=== PATIENT | female | born 1955 | race Two or more races ===

== ENCOUNTER 2016-03-11 09:43 | Inpatient (IN) | payer MEDICAID ==
[~2016-03-11] VITALS: Ht 30.5 cm; Wt 59.0 kg
[2016-03-11] MEDS ORDERED: ASPirin 81 mg TAB PO ONE (10:15)
[2016-03-11] MEDS ORDERED: MORPHINE SULF INJ 2 MG/ML SYRINGE 1ML IV ONE (10:15)
[2016-03-11] MEDS ORDERED: ONDANSETRON HCL 4 MG/2 ML VIAL IV ONE (10:15)
[2016-03-11] MEDS ORDERED: FUROSEMIDE 40 MG/4 ML VIAL IV ONE (10:15)
[2016-03-11 10:54] LABS: Basophils # (auto) 0 uL; Basophils % (auto) 0.6 % (0.0-2.0); Eosinophils # (auto) 0 uL; Eosinophils % (auto) 0.2 % (0.0-7.0); Hemoglobin 13.6 g/dL (12.2-16.2); Lymphocytes # (auto) 1.3 uL; Lymphocytes % (auto) 23.5 % (10.0-50.0); Mean Corpuscular Hemoglobin 28.9 pg (28.0-32.0); Mean Corpuscular Hgb Conc. 33.3 g/dL (32.0-36.0); Mean Platelet Volume 10.1 fL (7.4-10.4); Monocytes # (auto) 0.7 uL; Monocytes % (auto) 12.7 % (0.0-12.0); Neutrophils # (auto) 3.4 uL; Platelet Count (auto) 218 10^3/uL (140-450); Red Cell Distribution Width 13.2 % (11.6-16.0); White Blood Cell 5.4 10^3/uL (4.4-10.8)
[2016-03-11 11:20] LABS: Albumin 3.5 g/dL (3.4-5.0); BUN/Creatinine Ratio 18.4; Bilirubin, Total 0.7 mg/dL (0.2-1.0); Calcium 8.3 mg/dL (8.5-10.1); Magnesium 2.3 mg/dL (1.6-2.6); Total Protein 6.9 g/dL (6.4-8.2)
[2016-03-11 11:21] LABS: B-Type Natriuretic Peptide 18.09 pg/mL (0-100)
[2016-03-11 11:25] LABS: Potassium 2.9 mmol/L (3.5-5.1)
[2016-03-11] MEDS ORDERED: POTASSIUM CHL 20MEQ/100ML 100 ML IV ONE (11:30)
[2016-03-11 11:52] LABS: Temperature: 22.3 C (20.0-25.0)
[2016-03-11] MEDS ORDERED: DOCUSATE SOD 100 MG CAP PO PRN (16:15)
[2016-03-11] MEDS ORDERED: TEMAZEPAM 15 MG CAP PO PRN (16:15)
[2016-03-11] MEDS ORDERED: cefTRIAXone 1GM/50ML D5W 50 ML IV ONE (16:15)
[2016-03-11] MEDS ORDERED: MORPHINE SULF INJ 2 MG/ML SYRINGE 1ML IV PRN ×2 (16:15)
[2016-03-11] MEDS ORDERED: DEXTROSE (50%) 50ML SYRG IV PRN (16:15)
[2016-03-11] MEDS ORDERED: NITROGLYCERIN 0.4 MG SL TAB SL PRN (16:15)
[2016-03-11] MEDS: ACCU-CHEK COMFORT CURVE STRIP VI SCH ×2 (16:48→21:38)
[2016-03-11] MEDS: MULTIPLE VITAMIN TAB PO SCH (16:53)
[2016-03-11] MEDS: InsuLIN REG 1unit/0.01ml Soln (100units/ml) SC SCH ×2 (16:53→21:34)
[2016-03-11] MEDS: metFORMIN HYDROCHLORIDE 500 MG TAB PO SCH (17:00)
[2016-03-11 18:20] VITALS: BP 139/72
[2016-03-11 19:01] VITALS: BP 139/72
[2016-03-11 21:25] VITALS: BP 133/66
[2016-03-11] MEDS: SODIUM CHLOR 0.9% PF (SALINE LOCK) 10ML VIAL IV SCH ×2 (21:42→21:48)
[2016-03-11 22:10] LABS: Urine RBC None Seen /hpf (0 - 4)
[2016-03-11 22:24] LABS: Urine Bilirubin Negative (Negative); Urine Blood Negative /uL (Negative); Urine Color Yellow (Yellow); Urine Ketone TRACE (Negative); Urine Nitrite Negative (Negative); Urine Squamous Epithelial Cell FEW /hpf (<5); Urine pH 6.5 (5.0-8.0)
[2016-03-11 22:29] LABS: Urine Glucose 4+ mg/dL (Normal)
[2016-03-12 04:47] VITALS: BP 142/73
[2016-03-12] MEDS: InsuLIN REG 1unit/0.01ml Soln (100units/ml) SC SCH ×4 (05:46→21:56)
[2016-03-12] MEDS: ACCU-CHEK COMFORT CURVE STRIP VI SCH ×4 (05:51→22:02)
[2016-03-12] MEDS: metFORMIN HYDROCHLORIDE 500 MG TAB PO SCH ×2 (05:52→17:14)
[2016-03-12 06:56] LABS: Basophils # (auto) 0 uL; Basophils % (auto) 0.5 % (0.0-2.0); Eosinophils # (auto) 0.1 uL; Eosinophils % (auto) 1.2 % (0.0-7.0); Hematocrit 42.4 % (36.0-46.0); Hemoglobin 14.1 g/dL (12.2-16.2); Lymphocytes # (auto) 1.6 uL; Lymphocytes % (auto) 30.3 % (10.0-50.0); Mean Corpuscular Hemoglobin 29.5 pg (28.0-32.0); Mean Corpuscular Hgb Conc. 33.3 g/dL (32.0-36.0); Mean Corpuscular Volume 88.6 fL (80.0-100.0); Mean Platelet Volume 10.6 fL (7.4-10.4); Monocytes # (auto) 0.7 uL; Monocytes % (auto) 13.3 % (0.0-12.0); Neutrophils # (auto) 2.8 uL; Neutrophils % (auto) 54.7 % (37.0-80.0); Platelet Count (auto) 215 10^3/uL (140-450); Red Cell Distribution Width 13.3 % (11.6-16.0); White Blood Cell 5.2 10^3/uL (4.4-10.8)
[2016-03-12 07:19] LABS: Albumin 3.3 g/dL (3.4-5.0); BUN/Creatinine Ratio 20.4; Potassium 3.1 mmol/L (3.5-5.1)
[2016-03-12 07:22] LABS: Bilirubin, Total 0.6 mg/dL (0.2-1.0); Total Protein 6.8 g/dL (6.4-8.2)
[2016-03-12] MEDS: cefTRIAXone 1GM/50ML D5W 50 ML IV SCH (08:43)
[2016-03-12 09:00] VITALS: BP 131/60
[2016-03-12] MEDS: MULTIPLE VITAMIN TAB PO SCH (10:15)
[2016-03-12] MEDS: ONDANSETRON HCL 4 MG/2 ML VIAL IV PRN ×3 (10:51→22:15)
[2016-03-12] MEDS: SODIUM CHLORIDE 0.9% 1,000 ML IV SCH ×2 (11:20→17:14)
[2016-03-12] MEDS: LISINOPRIL 5 MG TAB PO SCH (11:20)
[2016-03-12] MEDS: INSULIN DETEMIR(LEVEMIR) 1unit/0.01ml Soln (100units/ml) SC SCH ×2 (11:26→21:58)
[2016-03-12 13:00] VITALS: BP 137/69
[2016-03-12] MEDS: SODIUM CHLOR 0.9% PF (SALINE LOCK) 10ML VIAL IV SCH ×2 (13:27→22:01)
[2016-03-12 17:00] VITALS: BP 139/78
[2016-03-12 22:00] VITALS: BP 144/77
[2016-03-12] MEDS: ATORVASTATIN 20 MG TAB PO SCH (22:02)
[2016-03-13 04:43] VITALS: BP 139/75
[2016-03-13] MEDS: ACCU-CHEK COMFORT CURVE STRIP VI SCH ×4 (05:31→21:48)
[2016-03-13] MEDS: SODIUM CHLOR 0.9% PF (SALINE LOCK) 10ML VIAL IV SCH ×3 (05:31→21:25)
[2016-03-13] MEDS: SODIUM CHLORIDE 0.9% 1,000 ML IV SCH ×2 (05:31→09:57)
[2016-03-13] MEDS: metFORMIN HYDROCHLORIDE 500 MG TAB PO SCH ×2 (05:32→17:54)
[2016-03-13] MEDS: InsuLIN REG 1unit/0.01ml Soln (100units/ml) SC SCH ×4 (05:32→23:11)
[2016-03-13 06:18] LABS: BUN/Creatinine Ratio 23.8
[2016-03-13 06:48] LABS: Potassium 2.7 mmol/L (3.5-5.1)
[2016-03-13 08:11] VITALS: BP 142/81
[2016-03-13] MEDS: cefTRIAXone 1GM/50ML D5W 50 ML IV SCH (08:13)
[2016-03-13] MEDS: MULTIPLE VITAMIN TAB PO SCH (09:56)
[2016-03-13] MEDS: LISINOPRIL 5 MG TAB PO SCH (09:57)
[2016-03-13] MEDS: INSULIN DETEMIR(LEVEMIR) 1unit/0.01ml Soln (100units/ml) SC SCH ×2 (10:15→23:13)
[2016-03-13] MEDS: POTASSIUM CHL 20MEQ/100ML 100 ML IV SCH ×2 (11:29→13:37)
[2016-03-13] MEDS ORDERED: HYDROcodone-ACET 5/325MG TAB PO PRN (12:30)
[2016-03-13] MEDS ORDERED: AZITHROMYCIN 500MG/D5W 250ML 250 ML IV ONE (12:30)
[2016-03-13 12:43] VITALS: BP 139/73
[2016-03-13 16:49] VITALS: BP 122/62
[2016-03-13] MEDS: ATORVASTATIN 20 MG TAB PO SCH (21:25)
[2016-03-13 21:30] VITALS: BP 155/76
[2016-03-14 04:59] VITALS: BP 142/78
[2016-03-14] MEDS: ACCU-CHEK COMFORT CURVE STRIP VI SCH ×3 (05:03→17:05)
[2016-03-14] MEDS: InsuLIN REG 1unit/0.01ml Soln (100units/ml) SC SCH ×3 (05:03→17:27)
[2016-03-14] MEDS: SODIUM CHLOR 0.9% PF (SALINE LOCK) 10ML VIAL IV SCH ×2 (05:04→14:00)
[2016-03-14] MEDS: metFORMIN HYDROCHLORIDE 500 MG TAB PO SCH ×2 (07:39→17:28)
[2016-03-14 08:30] VITALS: BP 124/61
[2016-03-14] MEDS: cefTRIAXone 1GM/50ML D5W 50 ML IV SCH (09:00)
[2016-03-14] MEDS: MULTIPLE VITAMIN TAB PO SCH (09:33)
[2016-03-14] MEDS: LISINOPRIL 5 MG TAB PO SCH (09:34)
[2016-03-14] MEDS: INSULIN DETEMIR(LEVEMIR) 1unit/0.01ml Soln (100units/ml) SC SCH (09:40)
[2016-03-14] MEDS ORDERED: AZITHROMYCIN 500MG/D5W 250ML 250 ML IV SCH (10:00)
[2016-03-14 13:00] VITALS: BP 139/67
[2016-03-14] MEDS ORDERED: LISI-275 PO (15:28)
[2016-03-14] MEDS ORDERED: LEVO500T3 PO (15:28)
[2016-03-14] MEDS ORDERED: POTASSIUM CHL 20 Meq TABLET PO ONE (15:30)
[2016-03-14 17:04] VITALS: BP 141/81
== END 2016-03-14 19:00 | disposition home or self-care (01) | DRG 144 ==
LOC: ER 09:46 → TELE 09:47 → TELE-EAST 18:16
PROVIDERS: ADMIT Internal Medicine; ATTEND Internal Medicine
DX: J20.9 Acute bronchitis, unspecified (principal); J18.9 Pneumonia, unspecified organism; R65.10 Systemic inflammatory response syndrome (SIRS) of non-infectious origin without acute organ dysfunction; I11.9 Hypertensive heart disease without heart failure; E11.65 Type 2 diabetes mellitus with hyperglycemia; E83.51 Hypocalcemia; R07.81 Pleurodynia; E87.6 Hypokalemia; Z88.8 Allergy status to other drugs, medicaments and biological substances; Z90.49 Acquired absence of other specified parts of digestive tract; Z90.710 Acquired absence of both cervix and uterus; Z79.84 Long term (current) use of oral hypoglycemic drugs
CPT/HCPCS: 36415; 71020; 80048; 80053; 81001; 82962; 83036; 83735; 83880; 84132; 84484; 85025; 87086; 93005; 93306; 94761; 96374; 96375; J0696; J1815; J2405; J3480

== ENCOUNTER 2016-06-04 10:25 | Observation (INO) | payer MEDICAID ==
[~2016-06-04] VITALS: Ht 165.1 cm; Wt 98.4 kg
[~2016-06-04 10:25] MED LIST: LEVO500T3 PO; LISI-275 PO
[2016-06-04 11:43] LABS: Basophils # (auto) 0 uL; Basophils % (auto) 0.5 % (0.0-2.0); Eosinophils # (auto) 0.1 uL; Eosinophils % (auto) 1.7 % (0.0-7.0); Hematocrit 42.8 % (36.0-46.0); Hemoglobin 14.6 g/dL (12.2-16.2); Lymphocytes # (auto) 1.1 uL; Lymphocytes % (auto) 16.7 % (10.0-50.0); Mean Corpuscular Hemoglobin 29.5 pg (28.0-32.0); Mean Corpuscular Volume 86.8 fL (80.0-100.0); Mean Platelet Volume 10.2 fL (7.4-10.4); Monocytes # (auto) 0.7 uL; Monocytes % (auto) 10.3 % (0.0-12.0); Neutrophils # (auto) 4.7 uL; Neutrophils % (auto) 70.8 % (37.0-80.0); Platelet Count (auto) 262 10^3/uL (140-450); Red Cell Distribution Width 13.2 % (11.6-16.0); White Blood Cell 6.6 10^3/uL (4.4-10.8)
[2016-06-04 12:09] LABS: Albumin 3.6 g/dL (3.4-5.0); Alkaline Phosphatase 120 U/L (45-117); Anion Gap 12 (5-15); Aspartate Aminotransferase 19 U/L (15-37); BUN/Creatinine Ratio 11.9; Bilirubin, Total 0.7 mg/dL (0.2-1.0); Blood Urea Nitrogen 8 mg/dL (7-18); Calcium 8.5 mg/dL (8.5-10.1); Carbon Dioxide 26 mmol/L (21-32); Chloride 103 mmol/L (98-107); GFR African American 115 mL/min; GFR Non-African American 95 mL/min; Glucose 290 mg/dL (74-106); Magnesium 2.2 mg/dL (1.6-2.6); Potassium 3.1 mmol/L (3.5-5.1); Sodium 141 mmol/L (136-145); Total Protein 7.4 g/dL (6.4-8.2)
[2016-06-04 12:35] LABS: INR 1.06 (0.9-1.15); Partial Thromboplastin Time 27.6 sec (22.64-33.71); Prothrombin Time 10.9 sec (9.37-12.3)
[2016-06-04 14:56] VITALS: BP 157/93
[2016-06-04] MEDS ORDERED: CEFOXITIN SODIUM 1 GM in D5W 5% 50 ML IV ONE (16:15)
[2016-06-04] MEDS ORDERED: POTASSIUM CHL 20 Meq TABLET PO ONE (16:15)
== END 2016-06-04 16:48 | disposition home or self-care (01) | DRG 144 ==
LOC: ER 10:30 → OVERFLOW 11:51 → ER 16:48
PROVIDERS: ADMIT Family Medicine; ATTEND Family Medicine
DX: J20.9 Acute bronchitis, unspecified (principal); E11.65 Type 2 diabetes mellitus with hyperglycemia; I10 Essential (primary) hypertension; E87.6 Hypokalemia
CPT/HCPCS: 36415; 71020; 80053; 83735; 84484; 85025; 85610; 85730; 87040; 93005; 96365; 99285; G0378; J0694; J7060

== ENCOUNTER 2016-08-12 10:57 | Emergency (ER) | payer MEDICAID ==
[~2016-08-12] VITALS: Ht 165.1 cm; Wt 98.4 kg
[~2016-08-12 10:57] MED LIST changes: +LEVO500T21 PO; -LEVO500T3 PO
[2016-08-12 11:21] VITALS: BP 182/94
[2016-08-12] MEDS ORDERED: cefTRIAXone SOD 1,000 MG VL IM ONE (12:00)
[2016-08-12] MEDS ORDERED: methylPREDNISolone SOD SUCC 125 MG/2 ML VL IM ONE (12:00)
== END 2016-08-12 12:36 | disposition home or self-care (01) ==
LOC: ER 10:57
DX: J03.90 Acute tonsillitis, unspecified (principal); E11.9 Type 2 diabetes mellitus without complications; I10 Essential (primary) hypertension; E07.89 Other specified disorders of thyroid; Z88.6 Allergy status to analgesic agent; Z90.49 Acquired absence of other specified parts of digestive tract; Z90.710 Acquired absence of both cervix and uterus
CPT/HCPCS: 96372; 99284; J0696; J2930